=== PATIENT | female | born 1960 | race American Indian/Alaskan Native ===

== ENCOUNTER 2018-05-11 16:33 | Inpatient (IN) | payer OTHER, SELFPAY ==
--- NOTE | 2018-05-11 17:11 | Emergency Department Report ---
Blank Doc - Documentation Documentation: This is a 57-year-old female that presents with shortness of breathe. Denies any chest pain. Denies any other complaints or symptoms. This initial assessment/diagnostic orders/clinical plan/treatment(s) is/are subject to change based on patient's health status, clinical progression and re- assessment by fellow clinical providers in the ED. Further treatment and workup at subsequent clinical providers discretion. Patient/guardians urged not to elope from the ED as their condition may be serious if not clinically assessed and managed. Initial orders include: 1- Patient sent to [facility] for further evaluation and treatment 2- labs 3- EKG 4- CXR
[2018-05-11 17:50] LABS: Basophils % (Auto) 0.5 % (0.0-1.8); Eosinophils % (Auto) 0.4 % (0.0-4.3); Hematocrit 32.6 % (30.3-42.9); Hemoglobin 10.3 gm/dl (10.1-14.3); Lymphocytes # (Auto) 1.2 K/mm3 (1.2-5.4); Lymphocytes % (Auto) 15.3 % (13.4-35.0); Mean Corpuscular HGB Conc 32 % (30-34); Mean Corpuscular Volume 90 fl (79-97); Monocytes # (Auto) 0.6 K/mm3 (0.0-0.8); Monocytes % (Auto) 7.9 % (0.0-7.3); Platelet Count 380 K/mm3 (140-440); Red Blood Count 3.62 M/mm3 (3.65-5.03); Red Cell Distribution Width 17.4 % (13.2-15.2)
[2018-05-11 18:05] LABS: BUN/Creatinine Ratio 19; Blood Urea Nitrogen 21 mg/dL (7-17); Calcium 8.5 mg/dL (8.4-10.2); Hemolysis Index 2
--- NOTE | 2018-05-11 18:14 | XRay Report ---
PROCEDURE: XR CHEST ROUTINE 2V TECHNIQUE: 2 view chest HISTORY: Dyspnea COMPARISONS: FINDINGS: Cardiac silhouette is moderately enlarged. There is bilateral pulmonary vascular congestion with inte rstitial prominence. No pleural fluid collection identified. IMPRESSION: Mild to moderate cardiomegaly. Findings suggestive of CHF. This document is electronically signed by Derrek Rosenthal MD., May 11 2018 06:12:25 PM ET
--- NOTE | 2018-05-11 20:07 | Emergency Department Report ---
ED Shortness of Breath HPI - General Chief Complaint: Dyspnea/Respdistress Stated Complaint: JENELLE Time Seen by Provider: 05/11/18 19:10 Source: patient Mode of arrival: Ambulatory Limitations: No Limitations - History of Present Illness Initial Comments: Patient is a 57-year-old female that since emergency room with complaints of dyspnea on exertion and shortness of breath. Patient states her symptoms started yesterday. Patient states her symptoms are worsening. Patient states 3 days ago she took a long car ride of 7+ hours. The patient states her symptoms are worse with exertion and movement and better with rest. Patient denies chest pain. Patient denies fever and chills. Patient denies headache and dizziness. MD Complaint: shortness of breath -: Sudden Severity: severe Improves With: rest Worsens With: exertion Treatments Prior to Arrival: none - Related Data Home Oxygen Therapy: No Allergies Allergy/AdvReac Type Severity Reaction Status Date / Time No Known Allergies Allergy Verified 05/11/18 16:35 ED Review of Systems ROS: Stated complaint: JENELLE Other details as noted in HPI Constitutional: denies: chills, fever Eyes: denies: eye pain, eye discharge, vision change ENT: denies: ear pain, throat pain Respiratory: shortness of breath, SOB with exertion, SOB at rest. denies: cough, wheezing Cardiovascular: denies: chest pain, palpitations Endocrine: no symptoms reported Gastrointestinal: denies: abdominal pain, nausea, diarrhea Genitourinary: denies: urgency, dysuria, discharge Musculoskeletal: denies: back pain, joint swelling, arthralgia Skin: denies: rash, lesions Neurological: denies: headache, weakness, paresthesias Psychiatric: denies: anxiety, depression Hematological/Lymphatic: denies: easy bleeding, easy bruising ED Past Medical Hx - Past Medical History Previous Medical History?: Yes Hx Hypertension: Yes - Surgical History Past Surgical History?: No - Family History Family history: no significant - Social History Smoking Status: Never Smoker Substance Use Type: Alcohol ED Physical Exam - General Limitations: No Limitations General appearance: alert, in no apparent distress - Head Head exam: Present: atraumatic, normocephalic - Eye Eye exam: Present: normal appearance - ENT ENT exam: Present: mucous membranes moist - Neck Neck exam: Present: normal inspection - Respiratory Respiratory exam: Present: normal lung sounds bilaterally. Absent: respiratory distress - Cardiovascular Cardiovascular Exam: Present: regular rate, normal rhythm. Absent: systolic murmur, diastolic murmur, rubs, gallop - GI/Abdominal GI/Abdominal exam: Present: soft, normal bowel sounds - Extremities Exam Extremities exam: Present: normal inspection - Back Exam Back exam: Present: normal inspection - Neurological Exam Neurological exam: Present: alert, oriented X3 - Psychiatric Psychiatric exam: Present: normal affect, normal mood - Skin Skin exam: Present: warm, dry, intact, normal color. Absent: rash ED Course Vital Signs 05/11/18 05/11/18 05/11/18 17:10 19:48 19:49 Temperature 97.8 F 98.3 F Pulse Rate 115 H 110 H Respiratory 22 28 H 28 H Rate Blood Pressure 165/115 Blood Pressure 162/93 [Left] O2 Sat by Pulse 100 97 97 Oximetry 05/11/18 05/11/18 05/11/18 20:03 20:16 20:58 Temperature Pulse Rate 110 H 107 H 109 H Respiratory 28 H 30 H Rate Blood Pressure Blood Pressure 155/107 160/99 [Left] O2 Sat by Pulse 93 98 Oximetry - Reevaluation(s) Reevaluation #1: 05/11/18 21:17 Discussed all results with patient. Patient agrees with plan of care and admission. Patient was admitted to the hospitalist service. - Consultations Consultation #1: Hospitalist consulted for admission. Hospitalist to admit patient. Hospitalist to assume care patient. 05/11/18 21:17 ED Medical Decision Making - Lab Data Result diagrams: 05/11/18 17:19 05/11/18 17:19 - EKG Data -: EKG Interpreted by Me EKG shows normal: sinus rhythm, axis, intervals, QRS complexes, ST-T waves Rate: tachycardia - EKG Data Interpretation: LVH - Radiology Data Radiology results: report reviewed, image reviewed interpreted by me: Bilateral effusions noted on chest x-ray. And cardiomegaly PROCEDURE: XR CHEST ROUTINE 2V TECHNIQUE: 2 view chest HISTORY: Dyspnea COMPARISONS: FINDINGS: Cardiac silhouette is moderately enlarged. There is bilateral pulmonary vascular congestion with interstitial prominence. No pleural fluid collection identified. IMPRESSION: Mild to moderate cardiomegaly. Findings suggestive of CHF. PROCEDURE: CT angiogram chest with contrast. TECHNIQUE: Computerized tomographic angiography of the chest was performed after the IV injection of iodinated nonionic contrast including image processing. The image data was postprocessed using 2-dimensional multiplanar reformatted (MPR) and 3-dimensional (MIP and/or volume rendered) techniques. Automated exposure control, adjustment of mA and/or kV according to patient size, or iterative reconstruction dose optimization techniques were utilized. CT DOSE LENGTH PRODUCT: 707.85 mGycm HISTORY: Shortness of breath, dyspnea on exertion, rule out pulmonary embolism. COMPARISONS: None. FINDINGS: The trachea and central bronchi appear normal. There is mild subsegmental atelectasis in the dependent portion of the right lower lobe and in the anterior portion of the left lower lobe. The lungs are otherwise clear. There is a moderate sized right pleural effusion and a small left pleural effusion. The thoracic aorta has a normal caliber without evidence of dissection. The pulmonary arteries enhance normally. There is no evidence of pulmonary embolism. There are a few small nonspecific mediastinal lymph nodes. The heart size is mildly enlarged. The thoracic skeleton appears intact. IMPRESSION: Moderate sized right pleural effusion and small left pleural effusion. No evidence of pulmonary embolism. - Medical Decision Making Patient is a 57-year-old female that presents emergency room with complaints of shortness of breath and Exertion. Patient Found to Have Hypoxia. Patient Placed on Oxygen. Patient Also Found to Have CHF Changes. EKG Positive for Sinus Tach and Possible LVH. Patient's Chest X-Ray Shows Bilateral Effusions. CT A Done to Rule Out PE. Patient Found to Have a Moderate-Sized Right Pleural Effusion and a Small Left Pleural Effusion. Patient will be treated with Lasix for her CHF. Patient's new onset CHF. Patient's BNP elevated. - Differential Diagnosis chf. peña. sob. pe. htn Critical Care Time: Yes Critical care attestation.: If time is entered above; I have spent that time in minutes in the direct care of this critically ill patient, excluding procedure time. Critical Care Time: 35 minutes ED Disposition Clinical Impression: SOB (shortness of breath), PEÑA (dyspnea on exertion), New onset of congestive heart failure, Hypoxia, Pleural effusion CHF (congestive heart failure) Qualifiers: Heart failure type: unspecified Heart failure chronicity: acute Qualified Code( s): I50.9 - Heart failure, unspecified Disposition: OP ADMIT IP TO THIS HOSP Is pt being admited?: Yes Does the pt Need Aspirin: No Condition: Critical Referrals: FILEMON GUADALUPE MD [Primary Care Provider] - 3-5 Days Time of Disposition: 21:16
--- NOTE | 2018-05-11 20:55 | Cat Scan Report ---
PROCEDURE: CT angiogram chest with contrast. TECHNIQUE: Computerized tomographic angiography of the chest was performed after the IV injection of iodinated nonionic contrast including image processing. The image data was postprocessed using 2-di mensional multiplanar reformatted (MPR) and 3-dimensional (MIP and/or volume rendered) techniques. Au tomated exposure control, adjustment of mA and/or kV according to patient size, or iterative reconstr uction dose optimization techniques were utilized. CT DOSE LENGTH PRODUCT: 707.85 mGycm HISTORY: Shortness of breath, dyspnea on exertion, rule out pulmonary embolism. COMPARISONS: None. FINDINGS: The trachea and central bronchi appear normal. There is mild subsegmental atelectasis in the dependen t portion of the right lower lobe and in the anterior portion of the left lower lobe. The lungs are o therwise clear. There is a moderate sized right pleural effusion and a small left pleural effusion. T he thoracic aorta has a normal caliber without evidence of dissection. The pulmonary arteries enhance normally. There is no evidence of pulmonary embolism. There are a few small nonspecific mediastinal lymph nodes. The heart size is mildly enlarged. The thoracic skeleton appears intact. IMPRESSION: Moderate sized right pleural effusion and small left pleural effusion. No evidence of pu lmonary embolism. This document is electronically signed by Bereket Shaw MD., May 11 2018 08:53:38 PM ET
[2018-05-11] MEDS ORDERED: LASIX IV ONE (21:21)
[2018-05-11] MEDS ORDERED: SODIUM CHLORIDE FLUSH SYRINGE 10 ML IV PRN (22:38)
[2018-05-11] MEDS ORDERED: ZOFRAN IV PRN (22:38)
[2018-05-11] MEDS ORDERED: TYLENOL PO PRN (22:38)
--- NOTE | 2018-05-11 22:44 | History and Physical Report ---
History of Present Illness Date of examination: 05/11/18 History of present illness: 57-year-old woman who has a history of hypertension, diagnosed in 2016, noncompliant with medication since that time course emergency room with complaints of shortness of breath 3 days, describing exertion, PND, orthopnea and lower extremity edema Review of systems Constitutional: no weight loss, chills, fever Ears, eyes, nose, mouth and throat: no nasal congestion, no nasal discharge, no sinus pressure, no vision change, no red eye. Neck: No neck pain or rigidity. Cardiovascular: no palpitations, chest pain Respiratory: no cough, +shortness of breath Gastrointestinal: no hematochezia, abdominal pain Genitourinary : no frequency , no hematuria Musculoskeletal: no joint swelling or muscle ache Integumentary: no rash, no pruritis Neurological: no parathesias, no focal weakness Endocrine: no cold or heat intolerance, no polyuria or polydipsia Hematologic/Lymphatic: no easy bruising, no easy bleeding, no gland swelling Allergic/Immunologic: no urticaria, no angioedema. PAST MEDICAL HISTORY:hypertension PAST SURGICAL HISTORY: Tubal ligation SOCIAL HISTORY: Social alcohol, no drugs, tobacco FAMILY HISTORY: Hypertension Medications and Allergies Allergies Allergy/AdvReac Type Severity Reaction Status Date / Time No Known Allergies Allergy Verified 05/11/18 16:35 Exam - Physical Exam Narrative exam: General Apperance: The patient lying in bed, breathing comfortable HEENT: Normocephalic, atraumatic. Pupils equally round and reactive to light, EOMI, no sclericterus or JVD or thyromegaly or nodule. , no carotid bruit, mucous membranes moist, no exudate or erythema Heart: S1-S2, regular is rhythm Lungs: Crackles bilaterally, breathing comfortable Abdomen: Positive bowel sounds, soft, nontender, nondistended, no organomegaly Extremities: + edema, no cyanosis clubbing Skin: no rash, nodule, warm and dry Neuro: cranial nerves 2-12 intact, speech is fluent, motor/sensory intact - Constitutional Vitals: Temp Pulse Resp BP Pulse Ox 98.3 F 110 H 28 H 140/93 98 05/11/18 19:48 05/11/18 22:28 05/11/18 22:28 05/11/18 22:28 05/11/18 22:28 Results - Labs CBC & Chem 7: 05/11/18 17:19 05/11/18 17:19 Labs: Abnormal lab results 05/11/18 05/11/18 05/11/18 Range/Units 17:19 17:19 20:33 RBC 3.62 L (3.65-5.03) M/mm3 RDW 17.4 H (13.2-15.2) % [place] % (Auto) 7.9 H (0.0-7.3) % Seg Neutrophils % 75.9 H (40.0-70.0) % Potassium 3.4 L (3.6-5.0) mmol/L BUN 21 H (7-17) mg/dL Glucose 106 H (65-100) mg/dL NT-Pro-B Natriuret Pep 22457 H (0-900) pg/mL - Imaging and Cardiology EKG: image reviewed Chest x-ray: report reviewed CT scan - chest: report reviewed Assessment and Plan Assessment New-onset CHF versus hypertensive urgency Hypertensive urgency: Malignant Plan Admit to medicine Diurese with IV Lasix sTART Beta carmen, MILAGRO inhibitor, aspirin, check cardiac enzymes, echo Consult cardiology, DVT prophylaxis Mitre I's and O's, daily weights
[2018-05-11 23:48] LABS: Creatine Kinase MB 2.2 ng/mL (0.0-4.0)
[2018-05-12 05:52] LABS: Basophils % (Auto) 0.4 % (0.0-1.8); Eosinophils # (Auto) 0.1 K/mm3 (0.0-0.4); Hematocrit 30.1 % (30.3-42.9); Hemoglobin 9.5 gm/dl (10.1-14.3); Lymphocytes # (Auto) 1.3 K/mm3 (1.2-5.4); Lymphocytes % (Auto) 15.9 % (13.4-35.0); Mean Corpuscular HGB Conc 32 % (30-34); Mean Corpuscular Volume 90 fl (79-97); Monocytes # (Auto) 0.7 K/mm3 (0.0-0.8); Monocytes % (Auto) 9.2 % (0.0-7.3); Platelet Count 327 K/mm3 (140-440); Red Blood Count 3.36 M/mm3 (3.65-5.03); Red Cell Distribution Width 17.3 % (13.2-15.2)
[2018-05-12 06:15] LABS: BUN/Creatinine Ratio 16; Blood Urea Nitrogen 18 mg/dL (7-17); Calcium 8.2 mg/dL (8.4-10.2); Hemolysis Index 9
[2018-05-12] MEDS ORDERED: LASIX IV SCH (10:00)
[2018-05-12] MEDS: BABY ASPIRIN PO SCH (10:49)
[2018-05-12] MEDS: ZESTRIL PO SCH (10:49)
[2018-05-12] MEDS: SODIUM CHLORIDE FLUSH SYRINGE 10 ML IV SCH ×2 (10:50→22:24)
[2018-05-12] MEDS: COREG PO SCH ×2 (10:50→22:24)
[2018-05-12] MEDS: LOVENOX SUB-Q SCH (10:50)
--- NOTE | 2018-05-12 12:11 | Consultation ---
History of Present Illness Consult date: 05/12/18 Consult reason: congestive heart failure History of present illness: Patient is a 57 year old woman who has no prior medical history and does not take any medications. She presented with shortness of breath that started approximately 5 days ago. She denies chest pain, palpitations and dizziness. There was no syncope. Patient reports mild edema but this has since resolved since initial treatment in the emergency department. She has an elevated BNP and her chest x-ray shows cardiomegaly with interstitial edema. Chest CT scan negative for pulmonary embolism. A cardiac consultation was requested for CHF evaluation. Past History Past Medical History: No medical history Medications and Allergies Allergies Allergy/AdvReac Type Severity Reaction Status Date / Time No Known Allergies Allergy Verified 05/11/18 16:35 Active Meds: Active Medications Acetaminophen (Tylenol) 650 mg PO Q4H PRN PRN Reason: Pain MILD(1-3)/Fever >100.5/LARA Aspirin (Baby Aspirin) 81 mg PO QDAY [facility] Last Admin: 05/12/18 10:49 Dose: 81 mg Documented by: Carvedilol (Coreg) 3.125 mg PO BID [facility] Last Admin: 05/12/18 10:50 Dose: 3.125 mg Documented by: Enoxaparin Sodium (Lovenox) 40 mg SUB-Q QDAY [facility] Last Admin: 05/12/18 10:50 Dose: 40 mg Documented by: Furosemide (Lasix) 40 mg IV BID [facility] Last Admin: 05/12/18 10:50 Dose: 40 mg Documented by: Lisinopril (Zestril) 2.5 mg PO QDAY [facility] Last Admin: 05/12/18 10:49 Dose: 2.5 mg Documented by: Ondansetron HCl (Zofran) 4 mg IV Q8H PRN PRN Reason: Nausea And Vomiting Sodium Chloride (Sodium Chloride Flush Syringe 10 Ml) 10 ml IV BID [facility] Last Admin: 05/12/18 10:50 Dose: 10 ml Documented by: Sodium Chloride (Sodium Chloride Flush Syringe 10 Ml) 10 ml IV PRN PRN PRN Reason: LINE FLUSH Physical Examination Vital Signs Temp Pulse Resp BP Pulse Ox 97.8 F 115 H 22 165/115 100 05/11/18 17:10 05/11/18 17:10 05/11/18 17:10 05/11/18 17:10 05/11/18 17:10 General appearance: no acute distress HEENT: Positive: PERRL Neck: Positive: trachea midline Cardiac: Positive: Reg Rate and Rhythm Lungs: Positive: Decreased Breath Sounds Neuro: Positive: Grossly Intact Extremities: Absent: edema Results 05/12/18 04:55 05/12/18 04:55 Cardiac Enzymes 05/11/18 05/12/18 Range/Units 22:57 04:55 CK-MB (CK-2) 2.2 2.0 (0.0-4.0) ng/mL CBC 05/11/18 05/12/18 Range/Units 17:19 04:55 WBC 7.9 7.8 (4.5-11.0) K/mm3 RBC 3.62 L 3.36 L (3.65-5.03) M/mm3 Hgb 10.3 9.5 L (10.1-14.3) gm/dl Hct 32.6 30.1 L (30.3-42.9) % Plt Count 380 327 (140-440) K/mm3 Lymph # 1.2 1.3 (1.2-5.4) K/mm3 [place] # 0.6 0.7 (0.0-0.8) K/mm3 Eos # 0.0 0.1 (0.0-0.4) K/mm3 Baso # 0.0 0.0 (0.0-0.1) K/mm3 Comprehensive Metabolic Panel 05/11/18 05/12/18 Range/Units 17:19 04:55 Sodium 144 149 H (137-145) mmol/L Potassium 3.4 L 3.3 L (3.6-5.0) mmol/L Chloride 106.0 109.2 H (98-107) mmol/L Carbon Dioxide 23 24 (22-30) mmol/L BUN 21 H 18 H (7-17) mg/dL Creatinine 1.1 1.1 (0.7-1.2) mg/dL Glucose 106 H 103 H (65-100) mg/dL Calcium 8.5 8.2 L (8.4-10.2) mg/dL Assessment and Plan - Patient Problems (1) CHF (congestive heart failure) Current Visit: Yes Status: Acute Qualifiers: Qualified Code(s): I50.9 - Heart failure, unspecified Plan to address problem: Continue current medical therapy including IV diuretics. We will obtain an echocardiogram for LVEF assessment.
[2018-05-12] MEDS ORDERED: K-DUR PO ONE (17:28)
--- NOTE | 2018-05-12 17:31 | Progress Note ---
Assessment and Plan New-onset CHF, systolic HF with EF ~15% Hypertensive urgency: Malignant hypernatremia hypokalemia Plan monitor at medicine cont Diuresis with IV Lasix, Beta carmen, MILAGRO inhibitor, aspirin, statin Consulted cardiology, DVT prophylaxis Mitre I's and O's, daily weights Plan for stress test tomorrow replete electrolytes Subjective Date of service: 05/12/18 Interval history: Patient seen and examined Denies any chest pain, breathing much better Plan for stress test tomorrow Objective - Exam Narrative Exam: General Apperance: The patient lying in bed, breathing comfortable HEENT: Normocephalic, atraumatic. Pupils equally round and reactive to light, EOMI, no sclericterus or JVD or thyromegaly or nodule. , no carotid bruit, mucous membranes moist, no exudate or erythema Heart: S1-S2, regular is rhythm Lungs: + Crackles bilaterally, breathing comfortable Abdomen: Positive bowel sounds, soft, nontender, nondistended, no organomegaly Extremities: trace edema, no cyanosis clubbing Skin: no rash, nodule, warm and dry Neuro: cranial nerves 2-12 intact, speech is fluent, motor/sensory intact - Constitutional Vitals: Vital Signs - 12hr 05/12/18 05/12/18 05/12/18 09:24 10:00 10:49 Temperature 98.4 F Pulse Rate 101 H 101 H Respiratory 18 Rate Blood Pressure 144/96 O2 Sat by Pulse 100 100 Oximetry 05/12/18 16:47 Temperature Pulse Rate 99 H Respiratory Rate Blood Pressure 137/81 O2 Sat by Pulse 100 Oximetry - Labs CBC & Chem 7: 05/12/18 04:55 05/13/18 04:33 Labs: Abnormal lab results 05/11/18 05/11/18 05/11/18 Range/Units 17:19 17:19 20:33 RBC 3.62 L (3.65-5.03) M/mm3 Hgb (10.1-14.3) gm/dl Hct (30.3-42.9) % RDW 17.4 H (13.2-15.2) % [place] % (Auto) 7.9 H (0.0-7.3) % Seg Neutrophils % 75.9 H (40.0-70.0) % Sodium (137-145) mmol/L Potassium 3.4 L (3.6-5.0) mmol/L Chloride (98-107) mmol/L BUN 21 H (7-17) mg/dL Glucose 106 H (65-100) mg/dL Calcium (8.4-10.2) mg/dL NT-Pro-B Natriuret Pep 77433 H (0-900) pg/mL 05/12/18 05/12/18 Range/Units 04:55 04:55 RBC 3.36 L (3.65-5.03) M/mm3 Hgb 9.5 L (10.1-14.3) gm/dl Hct 30.1 L (30.3-42.9) % RDW 17.3 H (13.2-15.2) % [place] % (Auto) 9.2 H (0.0-7.3) % Seg Neutrophils % 73.5 H (40.0-70.0) % Sodium 149 H (137-145) mmol/L Potassium 3.3 L (3.6-5.0) mmol/L Chloride 109.2 H (98-107) mmol/L BUN 18 H (7-17) mg/dL Glucose 103 H (65-100) mg/dL Calcium 8.2 L (8.4-10.2) mg/dL NT-Pro-B Natriuret Pep (0-900) pg/mL
[2018-05-13 06:18] LABS: Calcium 8.6 mg/dL (8.4-10.2)
[2018-05-13] MEDS ORDERED: LEXISCAN IV ONE ×2 (07:57→08:17)
[2018-05-13] MEDS ORDERED: LASIX IV SCH (10:00)
--- NOTE | 2018-05-13 10:49 | Progress Note ---
Assessment and Plan 1. Acute: Combined systolic and diastolic heart failure 2. Dilated nonischemic cardiomyopathy. Lexiscan MPI shows a dilated nonischemic cardiomyopathy with left ventricular ejection fraction 23% Echocardiogram shows dilated cardiomyopathy with left ventricular ejection fraction of 15-20%. Plan. Continue present medication with plans of early discharge follow-up in the office. Subjective Date of service: 05/13/18 Interval history: No cardiac symptoms Objective Vital Signs Temp Pulse Resp BP BP Pulse Ox 05/13/18 04:00 98.4 F 97 H 18 139/97 98 05/12/18 23:55 98.1 F 101 H 18 137/92 100 05/12/18 19:54 20 05/12/18 19:49 99 H 05/12/18 19:41 98.4 F 98 H 18 131/79 100 05/12/18 16:47 99 H 137/81 100 05/12/18 10:49 101 H - Physical Examination General: Appears Well HEENT: Positive: PERRL Neck: Positive: trachea midline. Negative: JVD/HJR Cardiac: Positive: Regular Rate, S3, PMI, Dilated, Laterally Displaced Lungs: Positive: clear to auscultation. Negative: No Wheeze, Rales, Rhonchi Neuro: Positive: Grossly Intact Extremities: Absent: edema - Labs and Meds Comprehensive Metabolic Panel 05/13/18 Range/Units 04:33 Sodium 149 H (137-145) mmol/L Potassium 3.6 (3.6-5.0) mmol/L Chloride 110.2 H (98-107) mmol/L Carbon Dioxide 25 (22-30) mmol/L BUN 18 H (7-17) mg/dL Creatinine 1.2 (0.7-1.2) mg/dL Glucose 117 H (65-100) mg/dL Calcium 8.6 (8.4-10.2) mg/dL - Imaging and Cardiology EKG: image reviewed
[2018-05-13] MEDS: COREG PO SCH (11:42)
[2018-05-13] MEDS: ZESTRIL PO SCH (11:42)
[2018-05-13] MEDS: BABY ASPIRIN PO SCH (11:44)
[2018-05-13] MEDS: LOVENOX SUB-Q SCH (11:44)
[2018-05-13] MEDS: SODIUM CHLORIDE FLUSH SYRINGE 10 ML IV SCH (11:45)
[2018-05-13 13:25] VITALS: BP 132/85
--- NOTE | 2018-05-13 14:53 | Discharge Summary ---
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 Hospital course: Patient is a 57 year old woman who has no prior medical history and does not take any medications. She presented with shortness of breath that started approximately 5 days ago. She has an elevated BNP and her chest x-ray shows cardiomegaly with interstitial edema. Chest CT scan negative for pulmonary embolism. She was admitted for further evaluation and management. Placed on Diuresis with IV Lasix, alos started on Beta carmen, MILAGRO inhibitor, aspirin, statin Consulted cardiology, Monitored I's and O's, daily weights, repleted elec trolytes. Lexiscan MPI shows a dilated nonischemic cardiomyopathy with left ventricular ejection fraction 23%, Echocardiogram shows dilated cardiomyopathy with left ventricular ejection fraction of 15-20%. Cardiology recommended medical Mx and outpt followup. She was then discharged home with outpt followup. Discharge diagnosis: New-onset CHF, systolic and diastolic HF with EF ~15% Hypertensive urgency: Malignant, resolved Non ischemic cardiomyopathy hypernatremia, stable hypokalemia, repleted Disposition: TO HOME OR SELFCARE Time spent for discharge: 34 minutes Core Measure Documentation - Palliative Care Palliative Care/ Comfort Measures: Not Applicable - Core Measures Any of the following diagnoses?: heart failure - Heart Failure Discharge Requirements MILAGRO/ARB for LVSD if EF <40%: Yes Beta carmen at discharge: Yes Exam - Physical Exam Narrative exam: General Apperance: The patient lying in bed, breathing comfortable HEENT: Normocephalic, atraumatic. Pupils equally round and reactive to light, EOMI, no sclericterus or JVD or thyromegaly or nodule. , no carotid bruit, mucous membranes moist, no exudate or erythema Heart: S1-S2, regular is rhythm Lungs: no Crackles bilaterally, breathing comfortable Abdomen: Positive bowel sounds, soft, nontender, nondistended, no organomegaly Extremities:no edema, no cyanosis clubbing Skin: no rash, nodule, warm and dry Neuro: cranial nerves 2-12 intact, speech is fluent, motor/sensory intact - Constitutional Vitals: Temp Pulse Resp BP Pulse Ox 98.4 F 100 H 18 132/85 100 05/13/18 04:00 05/13/18 13:24 05/13/18 04:00 05/13/18 13:24 05/13/18 13:24 Plan Activity: advance as tolerated Weight Bearing Status: Non-Weight Bearing Diet: low fat, low salt Special Instructions: restrict fluid intake to (1.2L daily), record daily weights, record daily BP diary [facility] DAVINA [Referring] - 3-5 Days RAUL BUSTOS MD [Staff Physician] - 7 Days Prescriptions: AtorvaSTATin [Lipitor] 40 mg PO QHS #30 tab Aspirin [Aspirin BABY CHEW TAB] 81 mg PO QDAY #30 tab.chew Carvedilol [Coreg] 3.125 mg PO BID #60 tablet Potassium Chloride [K-Dur] 10 meq PO QDAY #30 tablet Furosemide [Lasix TAB] 40 mg PO QDAY #30 tablet Lisinopril [Zestril TAB] 2.5 mg PO QDAY #30 tablet
--- NOTE | 2018-05-16 00:35 | Treadmill Report ---
THALLIUM STRESS TEST LEFT VENTRICLE: Left ventricle is moderately to severely dilated. There is a small to moderate sized, fixed basal anterior defect of moderate intensity. No reversible defects identified. Gated analysis demonstrates severe left ventricular systolic dysfunction with ejection fraction of 23%. 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 Small to moderate sized basal anterior defect appears consistent with breast attenuation artifact. There is no reversible ischemia demonstrated. Clinical correlation is recommended. JOB# [id number] CA/NTS
== END 2018-05-13 17:40 | disposition home or self-care (01) | DRG 304 ==
LOC: ED 16:33 → 4A 22:38
PROVIDERS: ADMIT Internal Medicine; ATTEND Internal Medicine
DX: I16.0 Hypertensive urgency (principal); I50.43 Acute on chronic combined systolic (congestive) and diastolic (congestive) heart failure; E87.0 Hyperosmolality and hypernatremia; I42.0 Dilated cardiomyopathy; I11.0 Hypertensive heart disease with heart failure; E87.6 Hypokalemia; Z91.19 Patient's noncompliance with other medical treatment and regimen; Z98.51 Tubal ligation status; Z82.49 Family history of ischemic heart disease and other diseases of the circulatory system
CPT/HCPCS: 36415; 71046; 71275; 78452; 80048; 82550; 82553; 83880; 84484; 85025; 93005; 93010; 93017; 93306; 94760; 96374; G0378; A9502; J1650; J1940; J2785; Q9967